=== PATIENT | female | born 1960 | race Caucasian/White ===

== ENCOUNTER 2017-07-07 14:01 | Emergency (ER) | payer BC, MEDICARE ==
[2017-07-07 14:29] VITALS: BP 96/61
--- NOTE | 2017-07-07 14:37 | UC ---
Complaint Female HPI - HPI Summary HPI Summary: 57 y/o female presents to the urgent care c/o burning and frequency with urination that started this morning. Pt reports mild lower back pain, but she has Hx of fibromyalgia. Pain is 2/10 w/ urination. Pt has not taking anything to alleviate symptoms. Pt has Hx of Hysterectomy. Pt denies fever, pelvic pain, abdominal pain, N/V/D, chest pain, SOB. or Hx or UTI. - History Of Current Complaint Chief Complaint: UCGU Stated Complaint: URINARY COMPLAINT Time Seen by Provider: 07/07/17 14:18 Hx Obtained From: Patient Onset/Duration: Gradual Onset, Lasting Hours - this morning, Still Present Timing: Intermittent Severity Initially: Mild Severity Currently: Mild Pain Intensity: 2 Pain Scale Used: 0-10 Numeric Character: Burning Aggravating Factor(s): Urination Alleviating Factor(s): Nothing Associated Signs And Symptoms: Positive: Back Pain - lower back pain. Negative : Fever, Vaginal Bleeding/Discharge, Nausea, Vomiting(# Of Episodes =) - Risk Factors Ectopic Risk Factor: Negative Ovarian Torsion Risk Factor: Negative - Allergies/Home Medications Allergies/Adverse Reactions: Allergies Allergy/AdvReac Type Severity Reaction Status Date / Time azithromycin [From Zithromax] Allergy See Comment Verified 07/07/17 14:19 codeine Allergy See Comment Verified 07/07/17 14:20 morphine Allergy See Comment Verified 07/07/17 14:20 Tetanus Vaccines and Toxoid Allergy Rash Verified 07/07/17 14:19 Home Medications: Home Medications Bupropion XL* [Wellbutrin XL *] 450 mg PO DAILY 07/07/17 [History Confirmed 02/14] Medical Marijuanna TID 07/07/17 [History] Sertraline* [Zoloft*] 100 mg PO DAILY 07/07/17 [History Confirmed 07/07/17] PMH/Surg Hx/FS Hx/Imm Hx Previously Healthy: Yes Endocrine History: Hypothyroidism Other Endocrine History: Fibromyalgia, chronic fatigue, vitamin D deficiency Other GI/ History: Gastroperesis Psychological History: Anxiety, Depression - Surgical History Surgical History: Yes Surgery Procedure, Year, and Place: hysterectomy, appy, laproscopic fibroid tumors - Family History Known Family History: Positive: Cardiac Disease, Hypertension, Diabetes - Social History Occupation: Employed Full-time Lives: With Family Alcohol Use: Rare Substance Use Type: Marijuana, Prescribed Substance Use Comment - Amount & Last Used: medical prescribed Smoking Status (MU): Never Smoked Tobacco Have You Smoked in the Last Year: No Review of Systems Constitutional: Negative Skin: Negative Eyes: Negative ENT: Negative Respiratory: Negative Cardiovascular: Negative Gastrointestinal: Negative Genitourinary: Dysuria, Frequency, Urgency Motor: Negative Neurovascular: Negative Musculoskeletal: Negative Neurological: Negative Psychological: Negative Is Patient Immunocompromised?: No All Other Systems Reviewed And Are Negative: Yes Physical Exam - Summary Physical Exam Summary: VITAL SIGNS: Reviewed. GENERAL: Patient is a well developed and nourished female who is sitting comfortable in the examining table. Patient is not in any acute respiratory distress. HEAD AND FACE: No signs of trauma. No ecchymosis, hematomas or skull depressions. No sinus tenderness. EYES: PERRLA, EOMI x 2, No injected conjunctiva, clear watery eyes, no nystagmus. No photophobia. EARS: Hearing grossly intact. Ear canals and tympanic membranes are within normal limits. MOUTH: pharynx with no erythema, no exudates,no palatal petechiae. no B/L tonsillar enlargement Uvula in midline. NECK: Supple, trachea is midline, no lymphadenopathy, no JVD, no carotid bruit, no c-spine tenderness, neck with full ROM. CHEST: Symmetric, no tenderness at palpation LUNGS: Clear to auscultation bilaterally. No wheezing or crackles. CVS: Regular rate and rhythm, S1 and S2 present, no murmurs or gallops appreciated. ABDOMEN: Soft, non-tender. No signs of distention. No rebound no guarding, and no masses palpated. Bowel sounds are normal. BACK:no scoliosis or lesions, non tender to palpation, No B/L CVA tenderness EXTREMITIES: FROM in all major joints, no edema, no cyanosis or clubbing. NEURO: Alert and oriented x 3. No acute neurological deficits. Speech is normal and follows commands. SKIN: Dry and warm Triage Information Reviewed: Yes Vital Signs: Initial Vital Signs Temp 98.1 F 07/07/17 14:24 Pulse 76 07/07/17 14:24 Resp 20 07/07/17 14:24 BP 96/61 07/07/17 14:24 Pulse Ox 98 07/07/17 14:24 Complaint Female Dx - Course Course Of Treatment: 57 y/o female presents to the urgent care c/o burning and frequency with urination that started this morning. Pt reports mild lower back pain, but she has Hx of fibromyalgia. Pain is 2/10 w/ urination. Pt has not taking anything to alleviate symptoms. Pt has Hx of Hysterectomy. Pt denies fever, pelvic pain, abdominal pain, N/V/D, chest pain, SOB. or Hx or UTI.Hx obtained. PE: WNL. UA results: Blood 3+, Leukoesterase 3+, Ketones: trace Pt Rx nitrofurantoin 100mg PO x 5 days. Pyridium 100mg PO TID x 2 days. Advised to increase fluid intake. Urine sent for culture if any abnormality Pt will be notified for further treatment. Pt advised If symptoms do not improve to return to the urgent care or f/u with PCP. Pt understood and agreed. Left the clinic ambulating. - Differential Dx/Diagnosis Differential Diagnosis/HQI/PQRI: Cervicitis, Renal Colic, Urinary Tract Infection Provider Diagnoses: 1- Urinary tract infection. 2-dysuria Discharge - Discharge Plan Condition: Stable Disposition: HOME Prescriptions: Nitrofurantoin Macrocrystals* [Macrodantin*] 100 mg PO BID #10 cap Phenazopyridine TAB* [Pyridium 100 mg TAB*] 100 mg PO TID #6 tab Patient Education Materials: Urinary Tract Infection in Women (ED) Referrals: Farzana Shaikh MD [Primary Care Provider] - 3 Days Additional Instructions: 1- Please take Nitrofurantoin 100mg PO x 5 days. Pyridium 100 mg PO TID x 2 days to alleviate urinary symptoms. Increase increase fluid intake. drink cranberry juice. 2-Urine sent for culture if any abnormality, you will be notified for further treatment. 3-If symptoms do not improve please return to the urgent care or f/u with her PCP.
== END 2017-07-07 15:24 | disposition home or self-care (01) ==
LOC: UCCORT 14:01
DX: N39.0 Urinary tract infection, site not specified (principal); R30.0 Dysuria; Z88.1 Allergy status to other antibiotic agents; Z88.5 Allergy status to narcotic agent; Z88.7 Allergy status to serum and vaccine; F41.8 Other specified anxiety disorders
CPT/HCPCS: 81003; 87077; 87086; 87186; 99212; G0463

== ENCOUNTER 2017-07-28 13:26 | Emergency (ER) | payer BC, MEDICARE ==
[2017-07-28 14:29] VITALS: BP 130/87
--- NOTE | 2017-07-28 14:47 | UC ---
Complaint Female HPI - HPI Summary HPI Summary: UTI Sx with dysuria, frequency, urgency since this morning. - History Of Current Complaint Chief Complaint: UCGU Stated Complaint: URINARY Time Seen by Provider: 07/28/17 14:40 Hx Obtained From: Patient Onset/Duration: Sudden Onset, Lasting Hours - 8, Still Present Timing: Constant Severity Initially: Moderate Severity Currently: Moderate Pain Intensity: 0 Character: Sharp, Burning Aggravating Factor(s): Urination Associated Signs And Symptoms: Positive: Back Pain. Negative: Fever, Nausea, Vomiting(# Of Episodes =) Related Hx: Similar Episode/Dx as: - UTI - Allergies/Home Medications Allergies/Adverse Reactions: Allergies Allergy/AdvReac Type Severity Reaction Status Date / Time azithromycin [From Zithromax] Allergy See Comment Verified 07/28/17 14:26 codeine Allergy See Comment Verified 07/28/17 14:26 morphine Allergy See Comment Verified 07/28/17 14:26 Tetanus Vaccines and Toxoid Allergy Rash Verified 07/28/17 14:26 PMH/Surg Hx/FS Hx/Imm Hx Other GI/ History: Gastroparesis Other Neurological History: Fibromyalgia Psychological History: Depression - Surgical History Surgical History: Yes Surgery Procedure, Year, and Place: hysterectomy, appy, laproscopic fibroid tumors - Family History Known Family History: Positive: Cardiac Disease, Hypertension, Diabetes - Social History Occupation: Disabled Lives: Alone Alcohol Use: None Substance Use Type: Marijuana, Prescribed Substance Use Comment - Amount & Last Used: medical prescribed Smoking Status (MU): Never Smoked Tobacco Have You Smoked in the Last Year: No Review of Systems Genitourinary: Dysuria, Frequency, Urgency Is Patient Immunocompromised?: No All Other Systems Reviewed And Are Negative: Yes Physical Exam Triage Information Reviewed: Yes Appearance: Well-Appearing, No Pain Distress, Well-Nourished Vital Signs: Initial Vital Signs Temp 98.2 F 07/28/17 14:24 Pulse 87 07/28/17 14:24 Resp 16 07/28/17 14:24 BP 130/87 07/28/17 14:24 Pulse Ox 98 07/28/17 14:24 Vital Signs Reviewed: Yes Eyes: Positive: Conjunctiva Clear Neck exam: Normal Respiratory Exam: Normal Cardiovascular Exam: Normal Abdomen Description: Positive: No Organomegaly. Negative: Nontender - mild epigastric tenderness, CVA Tenderness (R), CVA Tenderness (L) Musculoskeletal Exam: Normal Neurological Exam: Normal Psychological Exam: Normal Skin Exam: Normal Complaint Female Dx - Differential Dx/Diagnosis Differential Diagnosis/HQI/PQRI: Appendicitis, Renal Colic, Urinary Tract Infection Provider Diagnoses: Acute cystitis Discharge - Sign-Out/Discharge Documenting (check all that apply): Discharge - Discharge Plan Condition: Stable Disposition: HOME Prescriptions: Nitrofurantoin Macrocrystals* [Macrodantin*] 100 mg PO BID #14 cap Phenazopyridine 200 mg (NF) [Pyridium 200 MG tab *] 200 mg PO TID PRN #6 tab PRN Reason: UTI symptoms Patient Education Materials: Urinary Tract Infection in Women (ED), Nitrofurantoin Combination (By mouth) Referrals: Farzana Shaikh MD [Primary Care Provider] - - Billing Disposition and Condition Condition: STABLE Disposition: HOME
--- NOTE | 2017-07-31 08:03 | UC ---
- Progress Note Progress Note: NOTIFY pt NO UTI STOP antibiotic See PCP if still symptomatic Discharge - Sign-Out/Discharge Documenting (check all that apply): Post-Discharge Follow Up - Discharge Plan Condition: Stable Disposition: HOME Prescriptions: Nitrofurantoin Macrocrystals* [Macrodantin*] 100 mg PO BID #14 cap Phenazopyridine 200 mg (NF) [Pyridium 200 MG tab *] 200 mg PO TID PRN #6 tab PRN Reason: UTI symptoms Patient Education Materials: Nitrofurantoin Combination (By mouth), Urinary Tract Infection in Women (ED) Referrals: Farzana Shaikh MD [Primary Care Provider] - - Billing Disposition and Condition Condition: STABLE Disposition: HOME
== END 2017-07-28 15:05 | disposition home or self-care (01) ==
LOC: UCCORT 13:26
DX: N30.00 Acute cystitis without hematuria (principal); Z88.3 Allergy status to other anti-infective agents; Z88.5 Allergy status to narcotic agent; Z88.7 Allergy status to serum and vaccine
CPT/HCPCS: 81003; 87086; 99212; G0463

== ENCOUNTER 2018-03-28 17:15 | Emergency (ER) | payer BC, MEDICARE ==
--- OUTSIDE RECORDS SUMMARY | 2018-03-28 17:49 | XMS REPORT | Continuity of Care Document ---
:1960 External Reference #:[id number] Author Name Que Ramsey, OD Address [address] [place] [address] Care Team Providers Name Role Phone Farzana Shaikh MD Care Team Information Ciso Unavailable Farzana Shaikh MD Primary Care Physician Unavailable Payers Type Date Identification Numbers Payment Provider Subscriber Policy Number: [id number] [employer] Leonid Ibrahim JR PayID: [id number] [address] [address] [place] [address] Policy Number: [id number] Medicare [place] Helen Ibrahim PayID: [id number] [address] [place] [address] Advance Directives Description No Information Available Problems Date Description Provider Status Onset: Low back pain Shelli Juarez MD Active Family History Description No Information Available Social History Type Date Description Comments Sex Unknown ETOH Use Denies alcohol use Tobacco Use Start: Unknown Patient has never smoked Smoking Status Reviewed: 03/12/18 Patient has never smoked Allergies, Adverse Reactions, Alerts Date Description Reaction Status Severity Comments 12/13/2017 Azithromycin Active 12/13/2017 Codeine Active 12/13/2017 Morphine Liposomal Active 12/13/2017 Novocaine Active 12/13/2017 Tetanus Toxoids Active Medications Medication Date Status Form Strength Qnty SIG Indications Ordering Provider Xiidra 02/08/ Active Solution 5% 180uni 1gtt 2017 ts both Ramsey, eyes OD twice a day Plaquenil 08/ Active Tablets 200mg 60tabs M35.01 Jack Moy MD Evoxac 10/30/ Active Capsules 30mg 45caps M35.01 Jack Moy MD Dilaudid / Active Tablets 4mg 120tab Unknown 0000 s Zanaflex 00/ Active Tablets 4mg 60tabs Unknown 0000 Zofran 0000/ Active Tablets 4mg 30tabs Unknown 0000 Ambien / Active Tablets 10mg Unknown 0000 Neurontin / Active Capsules 100mg 60caps Unknown 0000 Synthroid / Active Tablets 125mcg 90tabs Unknown 0000 Lidoderm / Active Patches 5% 30unit Unknown 0000 s Bupropion HCL ER / Active Tablets ER 150mg Unknown (SR) 0000 12HR Bupropion HCL ER / Active Tablets ER 300mg Unknown (XL) 0000 24HR Escitalopram / Active Tablets 10mg Unknown Oxalate 0000 Zolpidem / Active Tablets 5mg Howson Tartrate 0000 Farzana CRISTINA Pantoprazole / Active Tablets DR 40mg Unknown Sodium 0000 Bethanechol / Active Tablets 10mg Unknown Chloride 0000 Diazepam / Active Tablets 5mg Unknown 0000 Cyanocobalamin / Active Solution 1000mcg/ML Unknown 0000 Bisacodyl / Active Suppository 10mg Unknown 0000 Xiidra 01/09/ Hx Solution 5% 60unit 1gtt Que 2018 - s jimmy Ramsey, 02/08/ eyes OD 2018 twice a day Immunizations Description No Information Available Vital Signs Date Vital Result Comment 01/09/2018 1:46pm Intraocular Pressure Right Eye 16 mmHg Intraocular Pressure Left Eye 16 mmHg Results Description No Information Available Procedures Date Code Description Status 03/12/2018 17208 Eye Exam Est Intermediate Completed 01/09/2018 52265 Refraction Completed 01/09/2018 19371 Eye Exam Est Intermediate Completed Encounters Type Date Location Provider Dx Diagnosis Office Visit 02/08/2018 Main Office Que Ramsey, OD 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
[2018-03-28 18:13] VITALS: BP 137/77
--- NOTE | 2018-03-28 18:46 | UC ---
UC General HPI - HPI Summary HPI Summary: 57 yo female c/o 3 weeks of sore throat, intermittent fever. Last few days + temp 101. Last night 102. Worse at night. No rash. Voice hoarse. Hurts to swallow. No abd issues. Some cough. No cp. Being tx'd for sjogren's dz, recent dx. No b/b new issues. + h/a judith with fever. Has been trying to work, but didn't feel good tonight, prompting medical attention. Receives Vit D and Vit B12 supplements. PCP Dr. Emery. - History of Current Complaint Chief Complaint: UCGeneralIllness Stated Complaint: FEVER(102)ST,DIZZINESS Time Seen by Provider: 03/28/18 18:45 Hx Obtained From: Patient Pain Intensity: 7 - Allergy/Home Medications Allergies/Adverse Reactions: Allergies Allergy/AdvReac Type Severity Reaction Status Date / Time azithromycin [From Zithromax] Allergy See Comment Verified 03/28/18 18:04 codeine Allergy See Comment Verified 03/28/18 18:04 morphine Allergy See Comment Verified 03/28/18 18:04 Tetanus Vaccines and Toxoid Allergy Rash Verified 03/28/18 18:04 Home Medications: Home Medications Levothyroxine TAB* [Synthroid 125 MCG TAB*] 1 tab DAILY 03/28/18 [History Confirmed 03/28/18] clonazePAM [Clonazepam] 1 tab BID 03/28/18 [History Confirmed 03/28/18] PMH/Surg Hx/FS Hx/Imm Hx Previously Healthy: No - see hpi - Surgical History Surgical History: Yes Surgery Procedure, Year, and Place: hysterectomy, appy, laproscopic fibroid tumors - Family History Known Family History: Positive: Cardiac Disease, Hypertension, Diabetes - Social History Occupation: Employed Full-time Alcohol Use: None Substance Use Type: Marijuana, Prescribed Substance Use Comment - Amount & Last Used: medical prescribed Smoking Status (MU): Never Smoked Tobacco Have You Smoked in the Last Year: No Review of Systems All Other Systems Reviewed And Are Negative: Yes Constitutional: Positive: Fever, Fatigue Skin: Positive: Negative Eyes: Positive: Other - dry eyes ENT: Positive: Sore Throat, Nasal Discharge Respiratory: Positive: Cough Cardiovascular: Positive: Other - see hpi Motor: Positive: Negative Neurovascular: Positive: Negative Musculoskeletal: Positive: Negative Neurological: Positive: Other - see hpi Psychological: Positive: Negative Is Patient Immunocompromised?: No Physical Exam Triage Information Reviewed: Yes Appearance: Well-Nourished - looks tired, but NAD Vital Signs: Initial Vital Signs Temp 98.6 F 03/28/18 18:08 Pulse 93 03/28/18 18:08 Resp 14 03/28/18 18:08 BP 137/77 03/28/18 18:08 Pulse Ox 100 03/28/18 18:08 Vital Signs Reviewed: Yes Eye Exam: Other - eyes a little watery ENT: Positive: Pharyngeal erythema - post pharyngeal redness, uvula midline. + white spots over tonsils, no uvula deviation. Tongue dry. No georgi sores / exudates., TM dull Neck exam: Normal Neck: Positive: Supple, Nontender, No Lymphadenopathy Respiratory Exam: Normal Respiratory: Positive: Chest non-tender, Lungs clear, Normal breath sounds, No respiratory distress, No accessory muscle use Cardiovascular Exam: Normal Cardiovascular: Positive: RRR, No Murmur, Pulses Normal, Brisk Capillary Refill Abdominal Exam: Normal Abdomen Description: Positive: Nontender Musculoskeletal Exam: Normal - grossly unremarkable Neurological Exam: Normal - grossly nonfocal Psychological Exam: Normal - conversing easily and appropriately Course/Dx - Course Course Of Treatment: Strep negative. Blood work: Cbc, cmp, crp. Reviewed coa / tx plan. Questions as posed answered to the best of my ability. Will f/u PCP. - Diagnoses Provider Diagnosis: Sore throat, Fever Discharge - Sign-Out/Discharge Documenting (check all that apply): Patient Departure All imaging exams completed and their final reports reviewed: No Studies - Discharge Plan Condition: Stable Disposition: HOME Prescriptions: DOXYcycline CAP(*) [DOXYcycline 100MG CAP(*)] 100 mg PO BID #19 cap Patient Education Materials: Pharyngitis (ED), Fever in Adults (ED) Forms: *Work Release Referrals: Farzana Shaikh MD [Primary Care Provider] - Additional Instructions: Follow up Dr. Emery - call tomorrow for appointment on Sunday. Seek medical attention for worse or new problems. Drink plenty of water. Blood work in the lab. Strep test negative today. - Billing Disposition and Condition Condition: STABLE Disposition: Home
[2018-03-28] MEDS ORDERED: DOXYcycline CAP(*) 100 MG PO ONE (19:49)
[2018-03-29 10:34] LABS: ABS Basophils 0.1 10^3/ul (0-0.2); ABS Eosinophils 0 10^3/ul (0-0.6); ABS Lymphocytes 1.3 10^3/ul (1.0-4.8); ABS Monocytes 0.6 10^3/ul (0-0.8); ABS Neutrophils 6.5 10^3/ul (1.5-7.7); ABS Nucleated RBC 0 10^3/ul; Eosinophil % 0.5 %; Hematocrit 41 % (35-47); Hemoglobin 13.6 g/dl (12.0-16.0); Lymphocyte % 15.3 %; Mean Corpuscular HGB Conc 33 g/dl (31-36); Mean Corpuscular Hemoglobin 29 pg (27-31); Mean Corpuscular Volume 88 fL (80-97); Mean Platelet Volume 7.5 fL (7.4-10.4); Nucleated Red Blood Cells % 0; Platelet Count 302 10^3/ul (150-450); Red Blood Count 4.64 10^6/ul (4.00-5.40); Red Cell Distribution Width 14 % (10.5-15); White Blood Count 8.5 10^3/ul (3.5-10.8)
[2018-03-29 10:47] LABS: EGFR Non-African American 58.9 (>60)
== END 2018-03-28 19:58 | disposition home or self-care (01) ==
LOC: UCCORT 17:15
DX: J02.9 Acute pharyngitis, unspecified (principal); R50.9 Fever, unspecified; Z88.5 Allergy status to narcotic agent; Z88.7 Allergy status to serum and vaccine; Z88.1 Allergy status to other antibiotic agents
CPT/HCPCS: 36415; 80053; 85025; 86140; 87651; 99212; A9270-GY; G0463

== ENCOUNTER 2018-04-05 13:07 | Emergency (ER) | payer BC, MEDICARE ==
[2018-04-05] MEDS ORDERED: methylPREDNISolone 125 MG* 2 ML VIAL IM ONE (13:12)
--- NOTE | 2018-04-05 13:36 | UC ---
Allergic Reaction HPI - HPI Summary HPI Summary: swollen lips and throat x 1 day no sob , no wheezing , right side chest pain was placed on doxy 7 days ago , symptoms started yesterday - History of Current Complaint Chief Complaint: UCAllergicReaction Stated Complaint: ALLERGIC REACTION Time Seen by Provider: 04/05/18 13:12 Hx Obtained From: Patient ?: No Onset/Duration: Gradual Onset, Lasting Days - 1, Still Present Severity Initially: Moderate Severity Currently: Moderate Pain Intensity: 0 Location: Discrete @ - lips and throat Aggravating Factor(s): Nothing Alleviating Factor(s): Nothing Associated Signs And Symptoms: Positive: Chest Pain - right side, Throat Tightening. Negative: Abdominal Pain, Cough Wheezing, Diaphoresis, Difficulty Breathing, Hoarseness, Lightheadedness, Nausea, Rash, Syncope, Vomiting - Allergies/Home Medications Allergies/Adverse Reactions: Allergies Allergy/AdvReac Type Severity Reaction Status Date / Time azithromycin [From Zithromax] Allergy See Comment Verified 04/05/18 13:14 codeine Allergy See Comment Verified 04/05/18 13:14 doxycycline Allergy Swelling Verified 04/05/18 13:14 Of Face,Lips,& Throat morphine Allergy See Comment Verified 04/05/18 13:14 Tetanus Vaccines and Toxoid Allergy Rash Verified 04/05/18 13:14 Home Medications: Home Medications Bethanechol TAB* [Urecholine TAB*] 10 mg PO TID 04/05/18 [History Confirmed 11/14] Cevimeline(NF) [Evoxac(NF)] 30 mg PO BID PRN 04/05/18 [History Confirmed ] Diazepam TAB(*) [Valium TAB(*)] 5 mg PO BID PRN 04/05/18 [History Confirmed 11/14] Escitalopram (NF) [Lexapro 10 mg (NF)] 10 mg PO DAILY 04/05/18 [History Confirmed 04/05/18] Hydroxychloroquine TAB* [Plaquenil TAB*] 200 mg PO DAILY 04/05/18 [History Confirmed 04/05/18] Lifitegrast [Xiidra] 5 % OP BID 04/05/18 [History Confirmed 04/05/18] Pantoprazole Sodium 40 mg PO BID 04/05/18 [History Confirmed 04/05/18] PMH/Surg Hx/FS Hx/Imm Hx - Additional Past Medical History Additional PMH: gastroparesis fibromyalgia depression chronic fatigue sjogrens - Surgical History Surgical History: Yes Surgery Procedure, Year, and Place: hysterectomy, appy, laproscopic fibroid tumors - Family History Known Family History: Positive: Cardiac Disease, Hypertension, Diabetes - Social History Alcohol Use: None Substance Use Type: Marijuana, Prescribed Substance Use Comment - Amount & Last Used: medical prescribed Smoking Status (MU): Never Smoked Tobacco Have You Smoked in the Last Year: No Review of Systems All Other Systems Reviewed And Are Negative: Yes Constitutional: Positive: Negative Skin: Positive: Negative Eyes: Positive: Negative ENT: Positive: Other - swollen lips and throat Respiratory: Positive: Negative Cardiovascular: Positive: Chest Pain Gastrointestinal: Positive: Negative Genitourinary: Positive: Negative Is Patient Immunocompromised?: No Physical Exam Triage Information Reviewed: Yes Appearance: Well-Appearing, No Pain Distress, Well-Nourished Vital Signs: Initial Vital Signs Temp 97.7 F 04/05/18 13:17 Pulse 71 04/05/18 13:17 Resp 16 04/05/18 13:17 BP 146/80 04/05/18 13:17 Pulse Ox 100 04/05/18 13:17 Vital Signs Reviewed: Yes Eye Exam: Normal Eyes: Positive: Conjunctiva Clear ENT: Positive: Normal ENT inspection, Hearing grossly normal, Pharynx normal, Other - swollen lips Neck exam: Normal Neck: Positive: Supple, Nontender, No Lymphadenopathy Respiratory Exam: Normal Respiratory: Positive: Chest non-tender, Lungs clear, Normal breath sounds Cardiovascular: Positive: RRR, No Murmur, Pulses Normal Abdominal Exam: Normal Abdomen Description: Positive: Nontender, Soft. Negative: CVA Tenderness (R), CVA Tenderness (L), Distended, Guarding Bowel Sounds: Positive: Present Allergic Reaction Course/Dx - Differential Dx/Diagnosis Provider Diagnosis: Allergic reaction caused by a drug Discharge - Sign-Out/Discharge Documenting (check all that apply): Patient Departure All imaging exams completed and their final reports reviewed: No Studies - Discharge Plan Condition: Stable Disposition: HOME Prescriptions: predniSONE [Prednisone 20 MG TAB] 20 mg PO BID #10 tablet Patient Education Materials: Antibiotic Medication Allergy (ED) Referrals: Farzana Shaikh MD [Primary Care Provider] - - Billing Disposition and Condition Condition: STABLE Disposition: Home
[2018-04-05 13:48] VITALS: BP 142/82
== END 2018-04-05 13:56 | disposition home or self-care (01) ==
LOC: UCCORT 13:07
DX: R07.9 Chest pain, unspecified (principal); R22.1 Localized swelling, mass and lump, neck; R22.0 Localized swelling, mass and lump, head; T50.905A Adverse effect of unspecified drugs, medicaments and biological substances, initial encounter; Y92.9 Unspecified place or not applicable; Z88.0 Allergy status to penicillin; Z88.5 Allergy status to narcotic agent; Z88.1 Allergy status to other antibiotic agents; Z88.7 Allergy status to serum and vaccine
CPT/HCPCS: 96372; 99212; G0463; J2930

== ENCOUNTER 2018-04-25 14:09 | Emergency (ER) | payer BC, MEDICARE ==
[2018-04-25 14:51] VITALS: BP 168/96
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
== END 2018-04-25 15:27 | disposition home or self-care (01) ==
LOC: UCCORT 14:09
DX: J02.9 Acute pharyngitis, unspecified (principal); Z88.1 Allergy status to other antibiotic agents; Z88.5 Allergy status to narcotic agent; Z88.7 Allergy status to serum and vaccine
CPT/HCPCS: 87651; 99211; G0463

== ENCOUNTER 2018-05-17 17:03 | Emergency (ER) | payer BC, MEDICARE ==
[2018-05-17 17:53] VITALS: BP 128/78
--- NOTE | 2018-05-17 18:06 | UC ---
Knee Pain HPI - HPI Summary HPI Summary: Pt presents with the c/o left knee pain that began after feeling it "give out" while walking ~ 1 week ago. - History of Current Complaint Chief Complaint: UCLowerExtremity Stated Complaint: LEFT KNEE COMP Time Seen by Provider: 05/17/18 18:00 Hx Obtained From: Patient ?: No Onset/Duration: Sudden Onset, Lasting Days, Still Present Severity Initially: Mild Severity Currently: Moderate Pain Intensity: 6 Character: Dull, Aching Aggravating Factor(s): Movement, Weight Bearing, Prolonged Standing, Stairs Alleviating Factor(s): Rest Associated Signs And Symptoms: Positive: Negative Able to Bear Weight: Yes - Risk Factors Septic Arthritis Risk Factor: Negative Gout Risk Factor: Age ^ 42 - Allergies/Home Medications Allergies/Adverse Reactions: Allergies Allergy/AdvReac Type Severity Reaction Status Date / Time azithromycin [From Zithromax] Allergy See Comment Verified 05/17/18 17:53 codeine Allergy See Comment Verified 05/17/18 17:53 doxycycline Allergy Swelling Verified 05/17/18 17:53 Of Face,Lips,& Throat morphine Allergy See Comment Verified 05/17/18 17:53 Tetanus Vaccines and Toxoid Allergy Rash Verified 05/17/18 17:53 PMH/Surg Hx/FS Hx/Imm Hx Previously Healthy: Yes - Surgical History Surgical History: Yes Surgery Procedure, Year, and Place: hysterectomy, appy, laproscopic fibroid tumors - Family History Known Family History: Positive: Cardiac Disease, Hypertension, Diabetes - Social History Occupation: Employed Full-time Lives: With Family Alcohol Use: None Substance Use Type: Marijuana Substance Use Comment - Amount & Last Used: medical prescribed Smoking Status (MU): Never Smoked Tobacco Have You Smoked in the Last Year: No Review of Systems All Other Systems Reviewed And Are Negative: Yes Constitutional: Positive: Negative Skin: Positive: Negative Eyes: Positive: Negative ENT: Positive: Negative Respiratory: Positive: Negative Cardiovascular: Positive: Negative Gastrointestinal: Positive: Negative Genitourinary: Positive: Negative Motor: Positive: Weakness - left knee Neurovascular: Positive: Negative Musculoskeletal: Positive: Arthralgia, Myalgia Neurological: Positive: Negative Psychological: Positive: Negative Is Patient Immunocompromised?: No Physical Exam Triage Information Reviewed: Yes Appearance: Well-Appearing Vital Signs: Initial Vital Signs Temp 97.8 F 05/17/18 17:48 Pulse 55 05/17/18 17:48 Resp 16 05/17/18 17:48 BP 128/78 05/17/18 17:48 Pulse Ox 99 05/17/18 17:48 Vital Signs Reviewed: Yes Eye Exam: Normal ENT Exam: Normal Dental Exam: Normal Neck exam: Normal Respiratory: Positive: No respiratory distress Musculoskeletal Exam: Normal Musculoskeletal: Positive: Strength Intact, ROM Intact Neurological Exam: Normal Psychological Exam: Normal Skin Exam: Normal Knee Pain Course/Dx - Differential Dx/Diagnosis Differential Diagnosis/HQI/PQRI: Internal Derangement Of Knee, Sprain, Strain Provider Diagnosis: Left knee pain Discharge - Sign-Out/Discharge Documenting (check all that apply): Patient Departure All imaging exams completed and their final reports reviewed: No Studies - Discharge Plan Condition: Stable Disposition: HOME Patient Education Materials: Knee Pain (ED) Referrals: Declan Robert MD [Medical Doctor] - As Soon As Possible Farzana Shaikh MD [Primary Care Provider] - As Soon As Possible - Billing Disposition and Condition Condition: STABLE Disposition: Home - Attestation Statements Provider Attestation: I was available for consult. This patient was seen by the [facility]. The patient was not presented to, seen by, or examined by me. EK
== END 2018-05-17 18:28 | disposition home or self-care (01) ==
LOC: UCCORT 17:03
DX: M25.562 Pain in left knee (principal); Z88.1 Allergy status to other antibiotic agents; Z88.5 Allergy status to narcotic agent; Z88.7 Allergy status to serum and vaccine
CPT/HCPCS: 99212; G0463